=== PATIENT | male | born 1945 | race African-American/Black ===

== ENCOUNTER → 2021-02-03 | Outpatient (CLI) | payer OTHER ==
[~2021-02-03] MED LIST: BACTROBAN OINT22 GM TP; PROTONIX40 MG PO; [UNRECOGNIZED DRUG - OTHER]
== END | disposition home or self-care (01) ==
LOC: PPH VACUNA
PROVIDERS: ATTEND Emergency Medicine Pediatric Emergency Medicine
DX: Z23 Encounter for immunization (principal)

== ENCOUNTER 2021-10-12 09:00 | Outpatient (CLI) | payer OTHER | END 2021-10-12 09:30 | disposition home or self-care (01) | LOC: PPH VACUNA 09:00 | PROVIDERS: ATTEND Emergency Medicine Pediatric Emergency Medicine | DX: Z23 Encounter for immunization (principal) ==

== ENCOUNTER 2022-10-21 19:05 | Emergency (ER) | payer OTHER ==
[~2022-10-21] VITALS: Ht 157.5 cm; Wt 44.5 kg
[~2022-10-21 19:05] MED LIST changes: -[UNRECOGNIZED DRUG - OTHER]; +[UNRECOGNIZED DRUG - OTHER] PO
== END 2022-10-21 21:29 | disposition home or self-care (01) ==
LOC: ER 19:05
DX: K08.89 Other specified disorders of teeth and supporting structures (principal)

== ENCOUNTER 2022-11-23 11:57 | Outpatient (CLI) | payer OTHER | END 2022-11-23 12:07 | disposition home or self-care (01) | LOC: PPH VACUNA 11:57 | PROVIDERS: ATTEND Emergency Medicine Pediatric Emergency Medicine | DX: Z23 Encounter for immunization (principal) ==

== ENCOUNTER 2023-06-21 09:53 | Emergency (ER) | payer OTHER ==
[~2023-06-21] VITALS: Ht 157.5 cm; Wt 54.4 kg
[2023-06-21] MEDS ORDERED: ROSUVASTATIN CA10 MG PO (10:06)
== END 2023-06-21 14:26 | disposition home or self-care (01) ==
LOC: ER 09:53
DX: R60.0 Localized edema (principal); I25.2 Old myocardial infarction; I50.9 Heart failure, unspecified